=== PATIENT | female | born 1980 | race Caucasian/White ===

== ENCOUNTER 2017-01-19 14:24 | Emergency (ER) | payer BC ==
--- NOTE | 2017-01-19 14:53 | EDM.PDOC ---
ED HPI GENERAL MEDICAL PROBLEM - General Chief Complaint: Neuro Symptoms/Deficits Stated Complaint: CANT SEE OUT OF MAREN BANKS,[id number] Time Seen by Provider: 01/19/17 14:40 Source of Information: Reports: Patient, Family, RN, RN Notes Reviewed History Limitations: Reports: No Limitations - History of Present Illness INITIAL COMMENTS - FREE TEXT/NARRATIVE: Pt presents to the ER with c/o not being able to see out of the right eye, blurry vision in the left eye, and tingling in the right arm. Pt states the symptoms began about 60 minutes prior to arrival. She states she has been told that she had a TIA in approximately 2006. She states her face was paralyzed for 2-3 days. She denies a headache at this time, or pain elsewhere. She denies fever, chills, nausea, vomiting, chest pain, sob. As we are speaking, she states the vision in the left eye has become "normal", and the vision in the right eye is still blurry. Onset: Today, Sudden Duration: Improving Location: Reports: Head - Related Data Allergies Allergy/AdvReac Type Severity Reaction Status Date / Time amoxicillin trihydrate Allergy Other Verified 02/19/14 19:18 [From Augmentin] bacitracin Allergy Other Verified 02/19/14 19:18 [From Neosporin ([id number])] bacitracin zinc Allergy Other Verified 02/19/14 19:18 [From Neosporin ([id number])] morphine Allergy Hives Verified 02/19/14 19:18 neomycin sulfate Allergy Other Verified 02/19/14 19:18 [From Neosporin ([id number])] polymyxin B Allergy Other Verified 02/19/14 19:18 [From Neosporin ([id number])] potassium clavulanate Allergy Other Verified 02/19/14 19:18 [From Augmentin] Home Meds: Home Meds . [No Known Home Meds] 02/19/14 [History] Past Medical History HEENT History: Reports: None Cardiovascular History: Reports: Hypertension Respiratory History: Reports: Asthma Gastrointestinal History: Reports: None Genitourinary History: Reports: None SUPERINTENDENT NONSELLING History: Reports: Spontaneous Musculoskeletal History: Reports: None Neurological History: Reports: TIA Psychiatric History: Reports: Anxiety Endocrine/Metabolic History: Reports: Other (See Below) Other Endocrine/Metabolic History: states thyroid "doesn't work very well" but not on any medication for it. "pre-diabetic" Dermatologic History: Reports: None - Past Surgical History HEENT Surgical History: Reports: None Cardiovascular Surgical History: Reports: None Respiratory Surgical History: Reports: None GI Surgical History: Reports: None Female Surgical History: Reports: Hysterectomy Neurological Surgical History: Reports: None Musculoskeletal Surgical History: Reports: None Social & Family History - Tobacco Use Smoking Status *Q: Current Every Day Smoker Years of Tobacco use: 20 Packs/Tins Daily: 0.3 Used Tobacco, but Quit: No Second Hand Smoke Exposure: No - Caffeine Use Caffeine Use: Reports: Soda - Alcohol Use Days Per Week of Alcohol Use: 0 - Recreational Drug Use Recreational Drug Use: No ED ROS GENERAL - Review of Systems Review Of Systems: ROS reveals no pertinent complaints other than HPI. ED EXAM, NEURO - Physical Exam Exam: See Below Exam Limited By: No Limitations General Appearance: Alert, WD/WN, No Apparent Distress Eye Exam: Bilateral Eye: Normal Inspection Ears: Normal External Exam, Hearing Grossly Normal Nose: Normal Inspection Throat/Mouth: Normal Inspection, Normal Voice, No Airway Compromise Head Exam: Atraumatic, Normocephalic Neck: Normal Inspection, Supple, Non-Tender, Full Range of Motion Respiratory/Chest: No Respiratory Distress, Lungs Clear, Normal Breath Sounds, No Accessory Muscle Use, Chest Non-Tender Cardiovascular: Normal Peripheral Pulses, Regular Rate, Rhythm, No Edema, No Gallop, No JVD, No Murmur, No Rub GI/Abdominal: Normal Bowel Sounds, Soft, Non-Tender, No Organomegaly, No Distention, No Abnormal Bruit, No Mass (Female) Exam: Deferred Rectal (Female) Exam: Deferred Neurological: Alert, Normal Mood/Affect, Normal Dorsiflexion, CN II-XII Intact, Normal Plantar Flexion, Normal Gait, Normal Reflexes, No Motor/Sensory Deficits , Oriented x 3, Abnormal Sensation, Other (tingling right arm) Back Exam: Normal Inspection, Full Range of Motion Extremities: Normal Inspection Course - Vital Signs Last Recorded V/S: Last Vital Signs Temp 97.6 F 01/19/17 16:37 Pulse 52 L 01/19/17 16:37 Resp 18 01/19/17 16:37 BP 118/68 01/19/17 16:37 Pulse Ox 96 01/19/17 16:37 - Orders/Labs/Meds Orders: Active Orders 24 hr Category Date Time Status EKG Documentation Completion [RC] STAT Care 01/19/17 14:46 Active Peripheral IV Care [RC] . DIRECTED Care 01/19/17 15:40 Active Sodium Chloride 0.9% [Saline Flush] Med 01/19/17 15:40 Active 10 ml FLUSH ASDIRECTED PRN Peripheral IV Insertion Adult [OM.PC] Stat Oth 01/19/17 15:40 Ordered Medication Orders Sodium Chloride (Saline Flush) 10 ml FLUSH ASDIRECTED PRN PRN Reason: Keep Vein Open Last Admin: 01/19/17 15:51 Dose: 10 ml Labs: Laboratory Tests 01/19/17 01/19/17 01/19/17 Range/Units 14:53 14:53 15:00 WBC 9.4 (5.0-10.0) 10^3/uL RBC 4.88 (4.2-5.4) 10^6/uL Hgb 15.5 (12.0-16.0) g/dL Hct 45.7 (37.0-47.0) % MCV 93.6 (80-100) fL MCH 31.8 (27.0-34.0) pg MCHC 33.9 (33.0-35.0) g/dL Plt Count 236 (150-450) 10^3/uL Neut % (Auto) 53.3 (42.2-75.2) % Lymph % (Auto) 36.9 (20.5-50.1) % [place] % (Auto) 7.6 (2-8) % Eos % (Auto) 1.8 (1.0-3.0) % Baso % (Auto) 0.4 (0.0-1.0) % Sodium 138 (135-145) mmol/L Potassium 3.9 (3.6-5.0) mmol/L Chloride 100 L (101-111) mmol/L Carbon Dioxide 26.0 (21.0-31.0) mmol/L Anion Gap 15.9 BUN 16 (7-18) mg/dL Creatinine 1.2 (0.6-1.3) mg/dL Est Cr Clr Drug Dosing 61.81 mL/min Estimated GFR (MDRD) 50 BUN/Creatinine Ratio 13.33 Glucose 103 (74-105) mg/dL Calcium 9.7 (8.4-10.2) mg/dl Total Bilirubin 0.5 (0.2-1.0) mg/dL AST 20 (10-42) IU/L ALT 37 (10-60) IU/L Alkaline Phosphatase 64 (42-121) IU/L Troponin I < 0.02 (0.00-0.02) ng/ml Total Protein 7.5 (6.7-8.2) g/dl Albumin 4.3 (3.2-5.5) g/dl Globulin 3.2 Albumin/Globulin Ratio 1.34 Urine Color Yellow (YELLOW) Urine Appearance Clear (CLEAR) Urine pH 6.0 (5.0-9.0) Ur Specific [place] 1.015 (1.005-1.030) Urine Protein Negative (NEGATIVE) Urine Glucose (UA) Negative (NEGATIVE) Urine Ketones Negative (NEGATIVE) Urine Occult Blood Trace-lysed H (NEGATIVE) Urine Nitrite Negative (NEGATIVE) Urine Bilirubin Negative (NEGATIVE) Urine Urobilinogen 0.2 (0.2-1.0) mg/dL Ur Leukocyte Esterase Negative (NEGATIVE) Urine RBC 0-5 /HPF Urine WBC 0-5 (0-5/HPF) /HPF Ur Epithelial Cells Few /HPF Urine Bacteria Occasional (0-FEW/HPF) /HPF Urine Mucus Occasional /LPF Meds: Medications Generic Name Dose Route Start Last Admin Trade Name Suzanne PRN Reason Stop Dose Admin Sodium Chloride 10 ml 01/19/17 15:40 01/19/17 15:51 Saline Flush FLUSH 10 ml ASDIRECTED PRN Administration Keep Vein Open Discontinued Medications Generic Name Dose Route Start Last Admin Trade Name Freq PRN Reason Stop Dose Admin Sodium Chloride 1,000 mls @ 999 mls/hr 01/19/17 15:40 01/19/17 15:51 Normal Saline IV 01/19/17 16:40 999 mls/hr .BOLUS ONE Administration Ketorolac Tromethamine 30 mg 01/19/17 15:40 01/19/17 15:51 Toradol IVPUSH 01/19/17 15:41 30 mg ONETIME ONE Administration - Re-Assessments/Exams Free Text/Narrative Re-Assessment/Exam: 01/19/17 15:20 Patient states the vision has resolved, but she has developed a headache. She rates the headache 6/10, in the left temporal region. 01/19/17 15:[address] Tyson, Neurology, [facility] for recommendation. She states she feels this is more migraine than TIA. She states the presenting symptoms, followed by the headache sounds like a migraine, and to treat accordingly. 01/19/17 15:45 NIHSS: 3 Departure - Departure Time of Disposition: 17:00 Disposition: Home, Self-Care 01 Condition: Fair Clinical Impression: Migraine Qualifiers: Migraine type: other Status migrainosus presence: without status migrainosus Intractability: not intractable Qualified Code(s): G43.809 - Other migraine, not intractable, without status migrainosus Hypertension Qualifiers: Hypertension type: unspecified Qualified Code(s): I10 - Essential (primary) hypertension - Discharge Information Instructions: Migraine Headache, [id number] Forms: ED Department Discharge Additional Instructions: Tylenol or Ibuprofen as directed for headache Drink plenty of water Follow up with your primary care facility - My Orders Last 24 Hours: My Active Orders 01/19/17 14:46 EKG Documentation Completion [RC] STAT 01/19/17 15:40 Peripheral IV Care [RC] . DIRECTED Sodium Chloride 0.9% [Saline Flush] 10 ml FLUSH ASDIRECTED PRN Peripheral IV Insertion Adult [OM.PC] Stat - Assessment/Plan Last 24 Hours: My Active Orders 01/19/17 14:46 EKG Documentation Completion [RC] STAT 01/19/17 15:40 Peripheral IV Care [RC] . DIRECTED Sodium Chloride 0.9% [Saline Flush] 10 ml FLUSH ASDIRECTED PRN Peripheral IV Insertion Adult [OM.PC] Stat
--- NOTE | 2017-01-19 15:09 | CT ---
Clinical history: 36-year-old 220 pound female with known "cervical cancer" experiencing blurred visi on and complaining of right arm tingling. Rule out intracranial abnormality. TECHNIQUE: Volume acquisition of data emergency unenhanced CT scan head and brain obtained with patie nt lying supine on the Siemens multi slice CT scanner [place], [place] . All data archived in the PACS system for storage and study (bone/brain windows). Interpretation: 1. Mild nasal septal deviation. Symmetric clear pneumatization of the paranasal and mastoid sinuses. 2. Uniformly thick bony calvarium without sign of skull fracture, underlying brain contusion or epidu ral/subdural hematoma. 3. Symmetric normal tompkins-white matter pattern and underlying mirror-image normal ventricular system. 4. No supratentorial or posterior fossa mass lesion, hydrocephalus, focal area of ischemic infarct, p athologic intracranial calcifications (symmetric choroid plexus and physiologic midline pineal calcif ications), or acute intracranial bleed. Note: Subtle asymmetric focal area of decreased attenuation occipital lobe, posteriorly on the right, probably reflecting technique but if visual abnormality persists suggest MRI as the next best, least invasive diagnostic modality to consider. 5. Cerebellum and brainstem unremarkable. CONCLUSION: Negative unenhanced CT scan head. (See above comment regarding occipital lobe)
[2017-01-19 15:20] LABS: CHLORIDE,CL 100 mmol/L (101-111); SODIUM,NA 138 mmol/L (135-145)
[2017-01-19] MEDS ORDERED: Sodium Chloride 0.9% 1,000 ML IV ONE (15:40)
[2017-01-19] MEDS ORDERED: Sodium Chloride 0.9% 10 ML Syringe FLUSH PRN (15:40)
[2017-01-19] MEDS ORDERED: Ketorolac 30 MG/ML SDV IVPUSH ONE (15:40)
--- NOTE | 2017-01-21 11:53 | EKG ---
01/19/2017 - NICOLASA RESTREPO - Twelve-lead EKG shows normal sinus rhythm with heart rate of 62, W[place] interval of 184. No significant ST elevation or ST depression noted on this 12-lead EKG. Nonspecific ST-T wave changes noted on lead V2, V3. [facility] /[id number]
--- NOTE | 2017-01-24 08:42 | EKG ---
01/19/2017- NICOLASA RESTREPO - This 12-lead EKG shows normal sinus rhythm. No significant ST elevation or ST depression noted on this 12-lead EKG. Nonspecific ST-T wave changes noted on lead V2 and V3. [facility] /[id number]
== END 2017-01-19 17:26 | disposition home or self-care (01) ==
LOC: DL.ED 14:24
DX: G43.809 Other migraine, not intractable, without status migrainosus (principal); I10 Essential (primary) hypertension; J45.909 Unspecified asthma, uncomplicated; F17.210 Nicotine dependence, cigarettes, uncomplicated; Z86.73 Personal history of transient ischemic attack (TIA), and cerebral infarction without residual deficits; Z88.1 Allergy status to other antibiotic agents; Z88.8 Allergy status to other drugs, medicaments and biological substances
CPT/HCPCS: 36415; 70450; 80053; 81001; 84484; 85025; 93005; 96361; 96374; 99285; J1885; J7030; J7050

== ENCOUNTER 2017-06-12 15:44 | Emergency (ER) | payer BC | END 2017-06-12 16:44 | disposition left against medical advice (07) | LOC: DL.ED 15:44 | DX: Z53.21 Procedure and treatment not carried out due to patient leaving prior to being seen by health care provider (principal) ==